=== PATIENT | male | born 1965 | race Caucasian/White ===

== ENCOUNTER 2020-12-17 17:21 | Emergency (ER) | payer BC, OTHER, SELFPAY ==
[2020-12-17 17:45] VITALS: BP 146/84; PULSE 82; RESP 19; TEMP 36.7; O2SAT 95
--- NOTE | 2020-12-17 17:49 | ED.WOUNDLAC ---
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 He is having difficulty with distal movement of his thumb. Onset (ago): minute(s) (10) Extremity Location: Left: hand (thumb) Place: home Patient tetanus UTD: Yes Context: accidental Associated symptoms: pain Treatments prior to arrival: bandage Related Data Home Medications Medication Instructions Recorded Confirmed baclofen 10 mg PO DAILY 12/17/20 12/17/20 gabapentin 300 mg PO TID 12/17/20 12/17/20 prednisone 5 mg PO DAILY 12/17/20 12/17/20 Allergies Allergy/AdvReac Type Severity Reaction Status Date / Time No Known Allergies Allergy Verified 12/17/20 17:42 Review of Systems Review of Systems: All systems reviewed & are unremarkable except as noted in HPI and below PMFSH Past Medical History Medical History (Updated 12/17/20 @ 18:31 by Sharif Chanel MD) Nerve pain Surgical History Surgical History (Updated 12/17/20 @ 17:51 by Sharif Chanel MD) H/O cervical spinal arthrodesis History of carpal tunnel release History of hip surgery Social History Social History (Updated 12/17/20 @ 17:52 by Sharif Chanel MD) Smoking status: Never smoker Alcohol intake: never Substance use: never Exam Const: General: healthy appearing and no acute distress Nutritional Appearance: well nourished Orientation/consciousness: patient oriented x3 HENMT: Head: normal to inspection Ears: external ears normal Eyes: Conjunctivae: conjunctivae normal Pupils: Equal, round and reactive pupils present EOM: EOMs intact bilaterally Neck: Neck: normal visual inspection Resp: Effort & Inspection: normal respiratory effort Auscultation: clear to auscultation bilaterally Cardio: Rate: regular rate Rhythm: regular rhythm GI: GI Palp: Yes Soft to palpation and No Tenderness to palpation present (GI) Auscultation: normal bowel sounds Back/Spine/Pelvis: Cervical Spine: cervical ROM normal Thoracic/Lumbar Spine: thoraco-lumbar ROM normal Skin: General skin exam: normal color Rashes: no rashes Wounds: wounds noted laceration left dorsal thumb size (3.5 cm) Neuro: General: patient oriented x3, moves all extremities, no meningeal signs and no focal motor deficits Speech: normal speech Gait exam (Neuro): Normal gait present Extrem: General: normal exam except as noted and no clubbing, cyanosis or edema Left upper extremity: hand tendon exam abnormal thumb extensor tendon and tenderness of the thumb at the proximal phalanx, at the distal phalanx and on the dorsal aspect Psych: Appearance: grossly normal and well kempt Mental Status: mental status grossly normal Affect: normal affect Attitude: cooperative Thought content: Yes Normal thought content present Course Vital Signs Vital signs: Vital Signs Temperature 36.7 C 12/17/20 17:45 Pulse Rate 82 12/17/20 17:45 Respiratory Rate 19 12/17/20 17:45 Blood Pressure 146/84 H 12/17/20 17:45 Pulse Oximetry 95 12/17/20 17:45 Temperature 36.7 C 12/17/20 17:45 Pulse Rate 82 12/17/20 17:45 Respiratory Rate 16 12/17/20 18:33 Blood Pressure 146/84 H 12/17/20 17:45 Pulse Oximetry 95 12/17/20 17:45 Procedures Laceration Laceration 1: Date: 12/17/20 Time: 18:09 Site: hand (thumb) Side (If applicable): left Size (cm): 3.5 Description: flap and clean Depth: involves tendon Local Anesthetic: lidocaine 1% Pre-repair: wound explored and irrigated ====== Skin Level ====== Skin layer closed with: nylon Size (cm): 4-0 Number of sutures: 9 Technique: running ====== Subcutaneous Layer ====== Subcutaneous lay
[2020-12-17 18:33] VITALS: RESP 16
== END 2020-12-17 18:42 | disposition home or self-care (01) ==
PROVIDERS: Emergency Provider Emergency Medicine
DX: S61.012A Laceration without foreign body of left thumb without damage to nail, initial encounter (principal); W45.8XXA Other foreign body or object entering through skin, initial encounter
CPT/HCPCS: 12042; 99283

== ENCOUNTER → 2021-09-17 10:28 | Outpatient (CLI) | payer BC, OTHER, SELFPAY ==
[2021-09-18 02:02] LABS: SARS-CoV-2 RNA PCR Positive
== END ==
PROVIDERS: PCP Family Medicine; Visit Provider Family Medicine
DX: U07.1 COVID-19 (principal)
CPT/HCPCS: C9803; U0003; U0005